=== PATIENT | female | born 1945 | race Hispanic/Latino ===

== ENCOUNTER 2018-03-21 09:46 | Outpatient (CLI) | payer MEDICARE, OTHER ==
--- NOTE | 2018-03-21 15:58 | Mammography Report ---
BONE DEXA:03/21/18 09:46:00 CLINICAL: Postmenopausal. No comparison. TECHNIQUE: Two site bone DEXA performed on an Hologic scanner. FINDINGS: The average BMD of the lumbar spine L1-L4 is 0.927g/cm squared with a T-score of -1.1 and a Z-score of +1.3. The average BMD of the left hip is 0.758g/cm squared with a T-score of -1.5 and a Z-score of +0.2. IMPRESSION: WHO classification: Osteopenia with increased fracture risk based on both spine and left hip measurements. RECOMMENDATION: Clinical correlation and routine screening. DEFINITIONS: BMD = Bone Mineral Density T-score = BMD related to mean peak bone mass of young adult (mean expressed in Standard Deviation) Z-score = Age matched BMD expressed in SD World Health Organization (WHO) Diagnostic Criteria Normal T-score > -1 SD Osteopenia T-score between -1 and -2.4 SD Osteoporosis T-score -2.5 SD or below NOTE: BMD is not the only risk factor for fracture. One should also consider factors such as the patient's age, risk of falling, previous osteoporotic fracture, family history of osteoporotic fractures, current smoker, and low body weight. Z-scores are not calculated if >80 years of age.
--- NOTE | 2018-03-21 16:03 | Mammography Report ---
BILATERAL DIGITAL SCREENING MAMMOGRAM with CAD : 03/21/18 09:46:00 CLINICAL: Routine screening. COMPARISON:07/17/16 and 12/15/13 FINDINGS: The breasts are heterogeneously dense, which may obscure small masses.2 groups of calcifications in the left breast are stable. No mass, architectural distortion or suspicious calcifications. IMPRESSION: No mammographic evidence of malignancy. BI-RADS CATEGORY: 2 -- Benign RECOMMENDATION: Routine mammographic screening in one year. COMMENT: Patient follow-up letters are generated by our [employer] application.
== END 2018-03-21 09:47 | disposition home or self-care (01) ==
LOC: SPVWC 09:46
PROVIDERS: ATTEND Internal Medicine
DX: Z12.31 Encounter for screening mammogram for malignant neoplasm of breast (principal); Z78.0 Asymptomatic menopausal state; M85.88 Other specified disorders of bone density and structure, other site; F17.210 Nicotine dependence, cigarettes, uncomplicated
CPT/HCPCS: 77067; 77080

== ENCOUNTER 2018-12-01 10:42 | Day surgery (SDC) | payer MEDICARE ==
[~2018-12-01 10:42] MED LIST: IOPIDINE ONE; MYDRIACYL ONE; NEOFRIN ONE
[2018-12-01] MEDS ORDERED: IOPIDINE OD ONE (10:50)
[2018-12-01] MEDS ORDERED: NEOFRIN OD ONE (10:50)
[2018-12-01] MEDS ORDERED: MYDRIACYL OD ONE (10:50)
[2018-12-01 11:32] VITALS: BP 137/70
== END 2018-12-01 14:54 | disposition home or self-care (01) ==
LOC: OR 10:42
PROVIDERS: ATTEND Specialist
DX: H26.491 Other secondary cataract, right eye (principal); E78.00 Pure hypercholesterolemia, unspecified; I10 Essential (primary) hypertension; J45.909 Unspecified asthma, uncomplicated; M19.90 Unspecified osteoarthritis, unspecified site; H40.9 Unspecified glaucoma; Z79.899 Other long term (current) drug therapy; Z88.6 Allergy status to analgesic agent; Z98.42 Cataract extraction status, left eye; Z98.41 Cataract extraction status, right eye; Z90.49 Acquired absence of other specified parts of digestive tract; Z90.710 Acquired absence of both cervix and uterus; Z98.890 Other specified postprocedural states

== ENCOUNTER 2018-12-08 10:46 | Day surgery (SDC) | payer MEDICARE ==
[2018-12-08] MEDS ORDERED: NEOFRIN OS ONE (11:34)
[2018-12-08] MEDS ORDERED: MYDRIACYL OS ONE (11:34)
[2018-12-08] MEDS ORDERED: IOPIDINE OS ONE ×2 (11:34→12:27)
[2018-12-08 11:48] VITALS: BP 114/59
== END 2018-12-08 12:29 | disposition home or self-care (01) ==
LOC: OR 10:46
PROVIDERS: ATTEND Specialist
DX: H26.492 Other secondary cataract, left eye (principal); H40.9 Unspecified glaucoma; E78.00 Pure hypercholesterolemia, unspecified; J45.909 Unspecified asthma, uncomplicated; M19.90 Unspecified osteoarthritis, unspecified site; I10 Essential (primary) hypertension; Z90.49 Acquired absence of other specified parts of digestive tract; Z90.710 Acquired absence of both cervix and uterus; Z98.890 Other specified postprocedural states; Z79.899 Other long term (current) drug therapy; Z88.6 Allergy status to analgesic agent; Z98.41 Cataract extraction status, right eye; Z98.42 Cataract extraction status, left eye

== ENCOUNTER 2020-06-17 09:53 | Outpatient (CLI) | payer MEDICARE ==
--- NOTE | 2020-06-17 11:43 | Mammography Report ---
DIGITAL SCREENING MAMMOGRAM WITH CAD, 06/17/2020 CLINICAL INFORMATION / INDICATION: Routine screening mammography. TECHNIQUE: Digital bilateral 2D mammography was obtained in the craniocaudal and mediolateral obliqu e projections. This examination was interpreted with the benefit of Computer-Aided Detection analysis . COMPARISON: 03/21/2018, 07/17/2016 FINDINGS: Breast Density: There are scattered areas of fibroglandular density. No dominant mass, suspicious calcifications, or architectural distortion in either breast. Bilateral benign calcifications are unchanged. IMPRESSION: No mammographic evidence of malignancy. Follow up recommendation: Routine yearly BI-RADS Category 2: Benign. A "normal" or negative report should not discourage follow up or biopsy of a clinically significant f inding. A written summary of these findings will be mailed to the patient. The patient will be entered into a mammography reporting system which will generate a reminder letter for the patient's next appointmen t at the appropriate interval. The [employer] recommends yearly mammograms starting at age 40 and continuing as l cooper as a woman is in good health. Breast MRI is recommended for women with an approximate 20-25% or greater lifetime risk of breast cancer, including women with a strong family history of breast or ova ariadne cancer or who have been treated for Hodgkin's disease. Signer Name: Julio Combs MD Signed: 06/17/2020 11:38 AM Workstation Name: [id number]
== END 2020-06-17 09:54 | disposition home or self-care (01) ==
LOC: SPVWC 09:53
PROVIDERS: ATTEND Internal Medicine
DX: Z12.31 Encounter for screening mammogram for malignant neoplasm of breast (principal)
CPT/HCPCS: 77067

== ENCOUNTER 2020-07-19 12:23 | Outpatient (CLI) | payer MEDICARE ==
--- NOTE | 2020-07-22 16:51 | Mammography Report ---
DEXA BONE DENSITY SCAN INDICATION / CLINICAL INFORMATION: ASYMPTOMATIC POSTMENOPAUSAL STATUS. 75 years Female COMPARISON: 03/21/2018. LUMBAR SPINE, L1-L4: - Bone mineral density (BMD) = 0.890 g/cm2. - T-score = -1.4 - Z-score = 1.1 Change (%) since most recent prior (if available): Decrease of 4.0% LEFT HIP, NECK : - Bone mineral density (BMD) = 0.557 g/cm2. - T-score = -2.6 - Z-score = -0.5 Change (%) since most recent prior (if available): Decrease of 5.1% IMPRESSION: 1. WHO Classification: Osteoporosis. Fracture Risk: High. BMD Reporting Guidelines (ISCD, 2015) BMD Reporting in Postmenopausal Women and in Men Age 50 and Older * T-scores are preferred. * The WHO densitometric classification is applicable. BMD Reporting in Females Prior to Menopause and in Males Younger Than Age 50 * Z-scores, not T-scores, are preferred. This is particularly important in children. * A Z-score of -2.0 or lower is defined as below the expected range for age, and a Z-score above -2. 0 is within the expected range for age. * Osteoporosis cannot be diagnosed in men under age 50 on the basis of BMD alone. * The WHO diagnostic criteria may be applied to women in the menopausal transition. http://www.iscd.org/official-positions/8659-bzkr-vqwnmghb-positions-adult/ Signer Name: Riki Umanzor MD Signed: 07/22/2020 4:47 PM Workstation Name: [id number]
== END 2020-07-19 12:24 | disposition home or self-care (01) ==
LOC: SPVWC 12:23
PROVIDERS: ATTEND Internal Medicine
DX: Z13.820 Encounter for screening for osteoporosis (principal); Z78.0 Asymptomatic menopausal state
CPT/HCPCS: 77080